=== PATIENT | male | born 1960 | race Caucasian/White ===

== ENCOUNTER 2022-12-08 10:08 | Inpatient (IN) | payer OTHER ==
[2022-12-08 11:46] VITALS: BMI 22.6
[2022-12-08] MEDS ORDERED: IBUPROFEN 600 MG TABLET (FP) PO PRN (12:31)
[2022-12-08] MEDS ORDERED: cloNIDine HCL 0.1 MG TABLET PO PRN (12:31)
[2022-12-08] MEDS ORDERED: guaiFENesin 600 MG TABLET.ER (FP) PO PRN (12:31)
[2022-12-08] MEDS ORDERED: BISMUTH SUBSALICYLATE 262 MG/15 ML BTL PO PRN (12:31)
[2022-12-08] MEDS ORDERED: LOPERAMIDE HCL 2 MG CAPSULE PO PRN (12:31)
[2022-12-08] MEDS ORDERED: BENZONATATE 200 MG CAPSULE PO PRN (12:31)
[2022-12-08] MEDS ORDERED: POLYETHYLENE GLYCOL (HEALTHYLAX) 3350 17 GM PACKET PO PRN (12:31)
[2022-12-08] MEDS ORDERED: NICOTINE 10 MG CARTRIDGE (INHALER) IH PRN (12:31)
[2022-12-08] MEDS ORDERED: MAG HYDROX/AL HYDROX/SIMETH 30 ML UNIT-DOSE CUP PO PRN (12:31)
[2022-12-08] MEDS ORDERED: methaDONE HCL 10 MG TABLET (FOR DETOX USE ONLY) PO ONE (12:31)
[2022-12-08] MEDS ORDERED: NALOXONE HCL (KLOXXADO) 8 MG SPRAY NS PRN (12:31)
[2022-12-08] MEDS ORDERED: ONDANSETRON *ODT* 4 MG TABLET SL PRN (12:31)
[2022-12-08] MEDS ORDERED: BENZOCAINE/MENTHOL (CHLORASEPTIC ) LOZENGE MM PRN (12:31)
[2022-12-08] MEDS ORDERED: MAGNESIUM HYDROX 2400MG/30ML ORAL SUSPENSION 30 ML CUP PO PRN (12:31)
[2022-12-08] MEDS ORDERED: IBUPROFEN 400 MG TABLET (FP) PO PRN (12:31)
[2022-12-08] MEDS ORDERED: ACETAMINOPHEN 325 MG TABLET (FP) PO PRN (12:31)
[2022-12-08] MEDS ORDERED: NALOXONE HCL 0.4 MG/ML VIAL IM PRN (12:31)
[2022-12-08] MEDS ORDERED: DICYCLOMINE HCL 10 MG CAPSULE PO PRN (12:31)
[2022-12-08] MEDS: NICOTINE 14 MG/24 HOURS TOPICAL PATCH TD SCH (13:06)
[2022-12-08] MEDS: PRENATAL VITAMINS W/ FOLIC ACID TABLET (FP) PO SCH (13:06)
[2022-12-08] MEDS ORDERED: ONDANSETRON *ODT* 4 MG TABLET ONE (13:10)
[2022-12-08] MEDS ORDERED: methaDONE HCL 10 MG TABLET (FOR DETOX USE ONLY) ONE (13:10)
[2022-12-08] MEDS: METHOCARBAMOL 500 MG TABLET PO PRN ×2 (13:51→22:18)
[2022-12-08] MEDS: hydrOXYzine PAMOATE 25 MG CAPSULE (FP) PO PRN ×2 (13:51→22:18)
[2022-12-08 15:50] LABS: HEMATOCRIT 37.3 % (35.4-49); HEMOGLOBIN 12.7 GM/dL (11.7-16.9); MEAN CELL VOLUME 88.2 fl (80-96); MEAN PLT VOLUME 6.8 fl (7.5-11.1); PLATELET COUNT 260 10^3/uL (134-434); RBC 4.23 M/mm3 (4.00-5.60); RDW 15.3 % (11.9-15.9); WHITE BLOOD COUNT 13.1 K/mm3 (4.0-10.0)
[2022-12-08 15:53] LABS: POTASSIUM 4.3 mmol/L (3.5-5.1)
[2022-12-08 15:59] LABS: ALBUMIN 3.6 g/dl (3.4-5.0); BLOOD UREA NITROGEN 12.2 mg/dL (7-18)
[2022-12-08 16:02] LABS: CREATININE 0.9 mg/dL (0.55-1.3)
[2022-12-08 16:04] LABS: TOT PROT 8.1 g/dl (6.4-8.2)
[2022-12-08] MEDS: MELATONIN 5 MG TABLETS PO SCH (22:18)
[2022-12-08] MEDS: THIAMINE HCL 100 MG TABLET (FP) PO SCH (22:18)
[2022-12-09] MEDS: NICOTINE 14 MG/24 HOURS TOPICAL PATCH TD SCH (10:22)
[2022-12-09] MEDS: hydrOXYzine PAMOATE 25 MG CAPSULE (FP) PO PRN (10:22)
[2022-12-09] MEDS: METHOCARBAMOL 500 MG TABLET PO PRN (10:22)
[2022-12-09] MEDS: PRENATAL VITAMINS W/ FOLIC ACID TABLET (FP) PO SCH (10:22)
[2022-12-09] MEDS: THIAMINE HCL 100 MG TABLET (FP) PO SCH (23:23)
[2022-12-09] MEDS: MELATONIN 5 MG TABLETS PO SCH (23:23)
[2022-12-10] MEDS ORDERED: methaDONE HCL 10 MG TABLET (FOR DETOX USE ONLY) PO ONE (10:00)
[2022-12-10] MEDS: METHOCARBAMOL 500 MG TABLET PO PRN ×2 (10:19→22:31)
[2022-12-10] MEDS: PRENATAL VITAMINS W/ FOLIC ACID TABLET (FP) PO SCH (10:20)
[2022-12-10] MEDS: diazePAM 5 MG TABLET PO PRN (10:20)
[2022-12-10] MEDS: NICOTINE 14 MG/24 HOURS TOPICAL PATCH TD SCH (10:22)
[2022-12-10] MEDS: THIAMINE HCL 100 MG TABLET (FP) PO SCH (22:31)
[2022-12-10] MEDS: MELATONIN 5 MG TABLETS PO SCH (22:31)
[2022-12-10] MEDS: hydrOXYzine PAMOATE 25 MG CAPSULE (FP) PO PRN (22:31)
[2022-12-11] MEDS: PRENATAL VITAMINS W/ FOLIC ACID TABLET (FP) PO SCH (10:17)
[2022-12-11] MEDS: diazePAM 5 MG TABLET PO PRN (10:17)
[2022-12-11] MEDS: METHOCARBAMOL 500 MG TABLET PO PRN (10:18)
[2022-12-11] MEDS: NICOTINE 14 MG/24 HOURS TOPICAL PATCH TD SCH (10:19)
[2022-12-11 10:55] LABS: HEMATOCRIT 38.7 % (35.4-49); HEMOGLOBIN 13.6 GM/dL (11.7-16.9); MCH 30.8 pg (25.7-33.7); MCHC 35.3 g/dl (32.0-35.9); MEAN CELL VOLUME 87.3 fl (80-96); MEAN PLT VOLUME 7.8 fl (7.5-11.1); PLATELET COUNT 211 10^3/uL (134-434); RBC 4.43 M/mm3 (4.00-5.60); RDW 14.9 % (11.9-15.9); WHITE BLOOD COUNT 4.3 K/mm3 (4.0-10.0)
[2022-12-11] MEDS: THIAMINE HCL 100 MG TABLET (FP) PO SCH (22:38)
[2022-12-11] MEDS: MELATONIN 5 MG TABLETS PO SCH (22:38)
[2022-12-12] MEDS ORDERED: methaDONE HCL 10 MG TABLET (FOR DETOX USE ONLY) PO ONE (10:00)
[2022-12-12] MEDS: PRENATAL VITAMINS W/ FOLIC ACID TABLET (FP) PO SCH (10:17)
[2022-12-12] MEDS: METHOCARBAMOL 500 MG TABLET PO PRN ×2 (10:17→22:22)
[2022-12-12] MEDS: hydrOXYzine PAMOATE 25 MG CAPSULE (FP) PO PRN (10:18)
[2022-12-12] MEDS: NICOTINE 14 MG/24 HOURS TOPICAL PATCH TD SCH (10:20)
[2022-12-12] MEDS: MELATONIN 5 MG TABLETS PO SCH (22:21)
[2022-12-12] MEDS: THIAMINE HCL 100 MG TABLET (FP) PO SCH (22:21)
[2022-12-13 09:16] VITALS: BP 131/73; PULSE 85; RESP 18; TEMP 97.9
[2022-12-13] MEDS: PRENATAL VITAMINS W/ FOLIC ACID TABLET (FP) PO SCH (10:03)
[2022-12-13] MEDS: NICOTINE 14 MG/24 HOURS TOPICAL PATCH TD SCH (10:03)
[2022-12-13 11:38] LABS: PH,URINE 7.5 (5.0-8.0); URINE APPEARANCE CLEAR; URINE BILIRUBIN NEGATIVE (NEGATIVE); URINE COLOR YELLOW; URINE GLUCOSE (UA) NEGATIVE (NEGATIVE); URINE KETONE NEGATIVE (NEGATIVE); URINE LEUK ESTERASE NEGATIVE (NEGATIVE); URINE NITRITE NEGATIVE (NEGATIVE); URINE PROTEIN NEGATIVE (NEGATIVE); URINE UROBILINOGEN 0.2 mg/dL (0.2-1.0)
== END 2022-12-13 11:27 | disposition home or self-care (01) | DRG 773 ==
LOC: YASAS 10:08 → Y6N 12:51
PROVIDERS: ADMIT Allergy & Immunology; ATTEND Surgery
PROC: HZ2ZZZZ Detoxification Services for Substance Abuse Treatment (ICD-10-PCS; principal; 2022-12-08)
DX: F11.23 Opioid dependence with withdrawal (principal); F10.230 Alcohol dependence with withdrawal, uncomplicated; F12.20 Cannabis dependence, uncomplicated; F17.210 Nicotine dependence, cigarettes, uncomplicated; F41.9 Anxiety disorder, unspecified; F32.A Depression, unspecified; B20 Human immunodeficiency virus [HIV] disease; B18.2 Chronic viral hepatitis C; Z62.810 Personal history of physical and sexual abuse in childhood; Z79.899 Other long term (current) drug therapy
CPT/HCPCS: 36415; 80053; 81003; 85027; 86780; 93005; 93010; C9803-CS; Q0162; U0003; U0005